=== PATIENT | female | born 1945 | race Caucasian/White ===

== ENCOUNTER 2017-09-14 09:58 | Inpatient (IN) | payer BC, OTHER ==
[2017-09-10 11:13] VITALS: BMI 30.9
[2017-09-14] MEDS ORDERED: HEPARIN NA (PORCINE) 5,000 UNITS/ML 1ML VIAL ONE (11:56)
[2017-09-14] MEDS ORDERED: THROMBIN (BOVINE) 5,000 UNIT VIAL TP ONE (11:56)
[2017-09-14] MEDS ORDERED: PROPOFOL 20 ML ONE ×9 (12:03→14:35)
[2017-09-14] MEDS ORDERED: fentaNYL CITRATE 250 MCG/5 ML VIAL ONE (12:03)
[2017-09-14] MEDS ORDERED: MIDAZOLAM HCL 2 MG/2 ML SINGLE DOSE VIAL ONE (12:03)
[2017-09-14] MEDS ORDERED: SUCCINYLCHOLINE CHLORIDE 200 MG/10 ML VIAL ONE (12:03)
[2017-09-14] MEDS ORDERED: DEXAMETHASONE SOD PHOSPHATE 4 MG/1 ML VIAL ONE (12:09)
[2017-09-14] MEDS ORDERED: ONDANSETRON 4 MG/2 ML VIAL ONE (12:09)
[2017-09-14] MEDS ORDERED: VANCOMYCIN 1,000 MG VIAL (RESTRICTED TO ID ONLY) ONE (12:09)
[2017-09-14] MEDS ORDERED: VANCOMYCIN 1,000 MG VIAL (RESTRICTED TO ID ONLY) IVPB ONE (12:30)
[2017-09-14] MEDS ORDERED: TRANEXAMIC ACID 1000 MG/10 ML VIAL ONE ×2 (13:00→13:07)
[2017-09-14] MEDS ORDERED: ceFAZolin SODIUM 1 GM VIAL IVPB ONE (13:00)
[2017-09-14] MEDS ORDERED: ceFAZolin SODIUM 1 GM VIAL ONE (13:00)
[2017-09-14] MEDS ORDERED: ePHEDrine SULFATE 50 MG/1 ML AMPULE ONE (13:40)
[2017-09-14] MEDS ORDERED: BENZOIN/ALOE VERA/STORAX/TOLU 58 ML BOTTLE ONE (15:15)
--- NOTE | 2017-09-14 15:39 | OP ---
Operative Note - Note: Operative Date: 09/14/17 Pre-Operative Diagnosis: C5-C6, C6-C7 spinal stenosis Operation: C5-C6 & C6-C7 ACDF Post-Operative Diagnosis: Same as Pre-op Surgeon: Robert Martinez Curing Oven Attendant: Leighton Martinez (Co-Surgeon) Anesthesiologist/BONE DRIER: Anton Lyons Anesthesia: General Specimens Removed: C5-C6, C6-C7 disk Estimated Blood Loss (mls): 50 Fluid Volume Replaced (mls): 1,200 Operative Report Dictated: Yes
--- NOTE | 2017-09-14 15:45 | PN ---
Progress Note (short form) - Note Progress Note: 71F s/p C5-C6, C6-C7 ACDF POD #0. -Admit to ICU post-op for airway observation. -Elevate head of bed at least 45 degrees. -Pain control: per anaesthesia team. -Mechanical DVT PPx. only: CHIQUITA's, SCD's. -Incentive spirometry. -PT/OT/OOB, Rehab. -WBAT B/L UE & LE. -Clear liquid diet; advance as tolerated. -d/c Reynolds catheter at midnight. -f/u AM labs. -Care per medical hospitalist team. -Discharge planning. -Will follow. Robert Martinez MD (Orthopaedic Surgery).
[2017-09-14] MEDS ORDERED: diazePAM CARPU-JECT 10 MG/2 ML DISP.SYRIN IVPUSH PRN (15:46)
[2017-09-14] MEDS ORDERED: ONDANSETRON 4 MG/2 ML VIAL IVPUSH PRN (15:46)
[2017-09-14] MEDS ORDERED: LACTATED RINGERS SOLUTION 1,000 ML IV SCH (16:00)
[2017-09-14] MEDS ORDERED: ACETAMINOPHEN INJECTION 100 ML IVPB ONE (16:51)
[2017-09-14] MEDS: ACETAMINOPHEN 1000 MG/100 ML VIAL (NON FORMULARY) IVPB SCH (16:55)
[2017-09-14] MEDS ORDERED: HYDROmorphone *PCA* 10MG/50ML DISP.SYRIN PCA ONE (17:14)
[2017-09-14] MEDS: HYDROmorphone *PCA* 10MG/50ML DISP.SYRIN PCA SCH (17:20)
[2017-09-14] MEDS: LACTATED RINGERS SOLUTION 1,000 ML IV SCH (17:50)
[2017-09-14] MEDS: ONDANSETRON 4 MG/2 ML VIAL IVPUSH PRN (22:53)
[2017-09-14] MEDS ORDERED: PROMETHAZINE HCL 25 MG/1 ML VIAL IVPUSH PRN (23:39)
[2017-09-14] MEDS ORDERED: DEXAMETHASONE SOD PHOSPHATE 4 MG/1 ML VIAL IVPUSH ONE (23:41)
[2017-09-15] MEDS: ACETAMINOPHEN 1000 MG/100 ML VIAL (NON FORMULARY) IVPB SCH ×2 (00:03→09:59)
[2017-09-15] MEDS ORDERED: HEMOQUE TEST 1 EACH EACH ONE (02:21)
[2017-09-15 06:48] LABS: HEMATOCRIT 32.6 % (32.4-45.2); MCH 26.7 pg (25.7-33.7); MCHC 33.8 g/dl (32.0-36.0); MEAN CELL VOLUME 79.2 fl (80-96); MEAN PLT VOLUME 9.4 fl (7.5-11.1); PLATELET COUNT 259 K/MM3 (134-434); RBC 4.11 M/mm3 (3.60-5.2); RDW 14.2 % (11.6-15.6); WHITE BLOOD COUNT 10.8 K/mm3 (4.0-10.0)
[2017-09-15 07:33] LABS: ANION GAP 11 (8-16); BLOOD UREA NITROGEN 9 mg/dL (7-18); CALCIUM 9.4 mg/dL (8.5-10.1); CHLORIDE 100 mmol/L (98-107); CO2 28 mmol/L (21-32); CREATININE 0.5 mg/dL (0.55-1.02); GLUCOSE,RANDOM 112 mg/dL (74-106); POTASSIUM 4.1 mmol/L (3.5-5.1); SODIUM 139 mmol/L (136-145)
[2017-09-15] MEDS: LACTATED RINGERS SOLUTION 1,000 ML IV SCH ×3 (09:45→18:18)
[2017-09-15] MEDS: METOPROLOL TARTRATE 25 MG TABLET (FP) PO SCH (10:00)
[2017-09-15] MEDS: HYDROCHLOROTHIAZIDE 25 MG TABLET (FP) PO SCH (10:00)
[2017-09-15] MEDS ORDERED: FLU VACCINE QUAD 60 MCG/0.5 ML (MDV 17-18) IM ONE (10:00)
[2017-09-15] MEDS: ONDANSETRON 4 MG/2 ML VIAL IVPUSH PRN (10:13)
--- NOTE | 2017-09-15 11:48 | OP ---
DATE OF OPERATION: 09/14/2017 SURGEON: Robert Martinez MD HR ADMINISTRATOR: Leighton Martinez MD PREOPERATIVE DIAGNOSIS: C5-6, C6-C7 disk prolapse with osteophyte disk and segmental instability and associated stenosis. POSTOPERATIVE DIAGNOSIS: C5-6, C6-C7 disk prolapse with osteophyte disk and segmental instability and associated stenosis. OPERATION PERFORMED: 1. Anterior cervical diskectomy and fusion, C5-6. 2. Anterior cervical diskectomy and fusion, C6-7. 3. Partial corpectomy C5, C6, and C7. 4. Insertion of cage, C5-6 and C6-C7. 5. Anterior bone grafting C5-6, C6-7. 6. Anterior plating C5, C6, and C7. ANESTHESIA: General. ANTIBIOTICS GIVEN: Kefzol 2 g, vancomycin 1 g preoperative, Decadron 10 mg given. PROCEDURE: Patient correctly identified, brought into the operating room. The head and neck were extended in the appropriate, relaxed, extended position. Neuromonitoring revealed no changes from baseline to the extended position. Monitoring of vocal cords performed as well. Timeout was called. The skin was cleansed with Betadine scrub solution, wiped off with alcohol, DuraPrep applied. A window drape applied. In the neck, an incision was made over the lines of Frantz. This was at the level of the cricothyroid interval. The platysma was split longitudinally. The investing layer of fascia was opened longitudinally. This gave easy access to the area between the viscera and vessels, exposing appropriately the anterior vertebral bodies of C5, C6, and C7. Using a Bovie, all the soft tissues were melted off the anterior surfaces of the bone. The longus colli was lifted off the bone on the medial and lateral side. Retractors placed into the muscle belly. [place] pins were placed into the body of C5 and into the body of C7. Verification of levels with a lateral fluoroscopic x-ray taken 3 times to ensure the correct positioning and correct disks to remove. Using a Bovie, the annulus was resected. A curette resected a lot of the disk material. A 40-mm rough michaelle-tip niles was utilized to create the rectangle in the interbody space at C4-5 and C5-6. Appropriate Kerrison number 1 and 2 were utilized to cut out the longitudinal ligament and to perform appropriate undercutting and 4 partial corpectomies facilitated with a niles of C5, C6, and C7; that is, at each level, 4 partial corpectomies were performed, one at C5, two at C6, and one at C7 to create the appropriate rectangular spaces noted right down to the exposed theca of the spinal cord. The full decompression performed. PEEK cages number8 with 5 degrees of lordosis inserted. These were filled with allograft bone morphogenic material. The cages were placed with the spine in slight extension. The ligamentotaxis collapsed the soft tissues onto the actual cages, solidifying the fixation completely. A size 32 Precision anterior plate inserted. Solid fixation achieved. Two screws in C5, two in C6, and two in C7. The subcutaneous tissue was closed as follows: Fascia and platysma with subcuticular 3-0 Vicryl, skin 3-0 Monocryl with Steri-Strips. No complications. Wound was completely dry at the time of extrication out of the OR. MD SAM Golden/[id number] MTDInna
--- NOTE | 2017-09-15 12:47 | PN ---
Teaching Attending Note Name of Resident: Marito Canas ATTENDING PHYSICIAN STATEMENT I saw and evaluated the patient. I reviewed the resident's note and discussed the case with the resident. I agree with the resident's findings and plan as documented. SUBJECTIVE: Pt seen and examined in the ICU. Briefly, 71yo female with h/o HTN, DM, hypercholesterolemia, cervical spinal stenosis who was admitted for an elective C5-C6 and C6-C7 anterior cervical discectomy and fusion. No reported complications. Pt states pain is controlled. No nausea or vomiting. No shortness of breath or chest pain. No fevers or chills. OBJECTIVE: Last Vital Signs Temp Pulse Resp BP Pulse Ox 98.4 F 87 14 130/73 99 09/15/17 10:00 09/15/17 08:00 09/15/17 08:00 09/15/17 08:00 09/15/17 08:00 Intake & Output 09/12/17 09/13/17 09/14/17 09/15/17 23:59 23:59 23:59 23:59 Intake Total 2050 1550 Output Total 2350 2900 Balance -300 -1350 Gen: NAD at rest Heart: RRR Lung: decreased breath sounds at the bases Abd: soft, nontender Ext: no edema CBC, BMP 09/15/17 05:40 09/15/17 05:40 Active Medications Diazepam (Valium Injection -) 5 mg IVPUSH Q8H PRN PRN Reason: BACK PAIN Hydrochlorothiazide (Hctz -) 25 mg PO DAILY [facility] Last Admin: 09/15/17 10:00 Dose: 25 mg Hydromorphone HCl (Dilaudid Tier Lift Truck Operator -) 0 mg RUFFLING MACHINE OPERATOR RUFFLING MACHINE OPERATOR [facility] PRN Reason: Protocol Stop: 09/17/17 15:49 Last Admin: 09/14/17 17:20 Dose: 10 mg Lactated Ringer's (Lactated Ringers Solution) 1,000 mls @ 125 mls/hr IV ASDIR [facility] Last Admin: 09/15/17 09:45 Dose: 125 mls/hr Metoprolol Tartrate (Lopressor -) 25 mg PO DAILY [facility] Last Admin: 09/15/17 10:00 Dose: 25 mg ASSESSMENT AND PLAN: Cervical Spinal Stenosis s/p C5-C6, C6-C7 ACDF HTN DM Hypercholesterolemia - pain control - incentive spirometry - PO when flatus - d/c de la fuente when OOB - mechanical DVT prophylaxis - continue home meds - dispo per surgery
--- NOTE | 2017-09-15 14:04 | CONSULT ---
Consultation: REQUESTING PROVIDER: CONSULT REQUEST: We have been asked to medically evaluate this patient for ICU care. HISTORY OF PRESENT ILLNESS: Patient is a 71F with history of HTN here post-op after anterior cervical discectomy and fusion. Placed in the ICU for airway observation. Patient stable overnight. Patient had episodes of vomiting after starting HOG DROPPER, discontinued HOG DROPPER, given zofran and phenegran. Patient reports some epigastric pain that radiates up to her chest after vomiting. Denies chest pain, shortness of breath, difficultly breathing, sensation of throat swelling. Procedure tolerated without complications. Reynolds discontinued at midnight. REVIEW OF SYSTEMS: CONSTITUTIONAL: Absent: fever, chills, diaphoresis, generalized weakness HEENT: Absent: rhinorrhea, nasal congestion, throat pain, throat swelling CARDIOVASCULAR: Absent: chest pain, syncope, palpitations RESPIRATORY: Absent: cough, shortness of breath GASTROINTESTINAL: Absent: abdominal distension, diarrhea Positive: Epigastric abdominal pain, nausea, vomiting GENITOURINARY: Absent: dysuria, frequency MUSCULOSKELETAL: Absent: myalgia, arthralgia, joint swelling, back pain Positive: Neck pain SKIN: Absent: rash, itching, pallor HEMATOLOGIC/IMMUNOLOGIC: Absent: easy bleeding, easy bruising, ENDOCRINE: Absent: unexplained weight gain, unexplained weight loss, heat intolerance, cold intolerance NEUROLOGIC: Absent: headache, focal weakness or paresthesias PSYCHIATRIC: Absent: anxiety, depression, suicidal or homicidal ideation, hallucinations. PHYSICAL EXAMINATION Vital Signs - 24 hr 09/14/17 09/14/17 09/14/17 15:38 15:45 16:00 Temperature 97.8 F Pulse Rate 93 H 89 85 Respiratory 15 14 10 L Rate Blood Pressure 135/72 130/66 127/66 O2 Sat by Pulse 97 99 98 Oximetry (%) 09/14/17 09/14/17 09/14/17 16:15 16:30 16:45 Temperature Pulse Rate 82 83 82 Respiratory 18 14 11 L Rate Blood Pressure 123/62 128/64 120/65 O2 Sat by Pulse 98 99 100 Oximetry (%) 09/14/17 09/14/17 09/14/17 17:00 17:15 17:20 Temperature Pulse Rate 82 83 83 Respiratory 10 L 13 16 Rate Blood Pressure 121/66 124/64 124/64 O2 Sat by Pulse 100 100 Oximetry (%) 09/14/17 09/14/17 09/14/17 17:30 17:45 18:00 Temperature Pulse Rate 80 82 83 Respiratory 13 10 L 10 L Rate Blood Pressure 119/62 119/63 119/63 O2 Sat by Pulse 100 100 100 Oximetry (%) 09/14/17 09/14/17 09/14/17 18:15 18:30 18:45 Temperature Pulse Rate 83 83 84 Respiratory 10 L 10 L 11 L Rate Blood Pressure 117/64 121/64 121/64 O2 Sat by Pulse 100 100 100 Oximetry (%) 09/14/17 09/14/17 09/14/17 19:00 19:15 19:30 Temperature 98.2 F Pulse Rate 86 87 86 Respiratory 10 L 11 L 15 Rate Blood Pressure 123/66 122/64 119/67 O2 Sat by Pulse 100 100 100 Oximetry (%) 09/14/17 09/14/17 09/14/17 20:00 20:30 21:00 Temperature Pulse Rate 90 91 H 89 Respiratory 10 L 10 L 15 Rate Blood Pressure 122/64 121/69 129/64 O2 Sat by Pulse 100 100 100 Oximetry (%) 09/14/17 09/14/17 09/14/17 21:30 22:00 22:30 Temperature 98.1 F Pulse Rate 89 90 89 Respiratory 15 13 14 Rate Blood Pressure 129/64 126/70 130/68 O2 Sat by Pulse 100 100 100 Oximetry (%) 09/14/17 09/15/17 09/15/17 22:47 00:00 02:06 Temperature 98.9 F 98.5 F Pulse Rate 95 H 85 86 Respiratory 18 14 16 Rate Blood Pressure 141/63 138/80 134/72 O2 Sat by Pulse Oximetry (%) 09/15/17 09/15/17 09/15/17 04:00 06:00 08:00 Temperature 99 F 98.7 F Pulse Rate 85 86 87 Respiratory 18 16 14 Rate Blood Pressure 131/74 132/71 130/73 O2 Sat by Pulse 99 Oximetry (%) 09/15/17 09/15/17 10:00 12:00 Temperature 98.4 F Pulse Rate 73 Respiratory 14 Rate Blood Pressure 124/69 O2 Sat by Pulse Oximetry (%) GENERAL: Awake, alert, and fully oriented, in no acute distress. HEAD: Normal with no signs of trauma. EYES: Pupils equal, round and reactive to light, extraocular movements intact, sclera anicteric, conjunctiva clear. No lid lag. EARS, NOSE, THROAT: Ears normal, nares patent, oropharynx clear without exudates. Moist mucous membranes. NECK: Supple, bandaged surgical wound LUNGS: Breath sounds equal, clear to auscultation bilaterally. No wheezes, and no crackles. No accessory muscle use. HEART: Regular rate and rhythm, normal S1 and S2 without murmur, rub or gallop. ABDOMEN: Soft, nontender, not distended, normoactive bowel sounds, no guarding, no rebound, no masses. No hepatomegaly or splenomegaly. UPPER EXTREMITIES: 2+ pulses, warm, well-perfused. No cyanosis. No clubbing. Cap refill <2 seconds. No peripheral edema. LOWER EXTREMITIES: 2+ pulses, warm, well-perfused. No calf tenderness. No peripheral edema. NEUROLOGICAL: Cranial nerves II-XII intact. Normal speech. PSYCHIATRIC: Cooperative. Good eye contact. Appropriate mood and affect. SKIN: Warm, dry, normal turgor, no rashes or lesions noted. Laboratory Results - last 24 hr 09/14/17 09/15/17 09/15/17 19:43 02:20 05:40 WBC 10.8 H RBC 4.11 Hgb 11.0 Hct 32.6 MCV 79.2 L MCH 26.7 MCHC 33.8 RDW 14.2 Plt Count 259 MPV 9.4 Sodium Potassium Chloride Carbon Dioxide Anion Gap BUN Creatinine POC Glucometer 127 148.57650 Random Glucose Calcium 09/15/17 09/15/17 05:40 06:11 WBC RBC Hgb Hct MCV MCH MCHC RDW Plt Count MPV Sodium 139 Potassium 4.1 Chloride 100 Carbon Dioxide 28 Anion Gap 11 BUN 9 Creatinine 0.5 L POC Glucometer 132.66751 Random Glucose 112 H Calcium 9.4 Active Medications Generic Name Dose Route Start Last Admin Trade Name Freq PRN Reason Stop Dose Admin Diazepam 5 mg 09/14/17 15:46 Valium Injection - IVPUSH Q8H PRN BACK PAIN Hydrochlorothiazide 25 mg 09/15/17 10:00 09/15/17 10:00 Hctz - PO 25 mg DAILY [facility] Administration Hydromorphone HCl 0 mg 09/14/17 16:00 09/14/17 17:20 Dilaudid Segment Producer - HOG DROPPER 09/17/17 15:49 10 mg HOG DROPPER [facility] Administration Protocol Lactated Ringer's 1,000 mls @ 125 mls/hr 09/14/17 16:00 09/15/17 09:45 Lactated Ringers Solution IV 125 mls/hr ASDIR [facility] Administration Metoprolol Tartrate 25 mg 09/15/17 10:00 09/15/17 10:00 Lopressor - PO 25 mg DAILY [facility] Administration ASSESSMENT/PLAN: Patient is a 71F with history of HTN here today after anterior cervical discectomy and fusion. Vital signs stable and normal overnight. No airway issues. Tolerating PO. Pain under control. Resp #Post-op ACDF - Airway monitored overnight, no issues - Good for transfer to general bed - Incentive spirometry CV #HTN - Continue home medications #Post-op ACDF - IV fluids Neuro: #Post op ACDF - Pain under control, no HOG DROPPER needed FEN/GI: - Clear diet, advance as tolerated and per surgery - Monitor electrolytes, replete as necessary Dispo: - Patient stable for transfer to med/surg. Visit type - Emergency Visit Emergency Visit: Yes ED Registration Date: 09/14/17 Care time: The patient presented to the Emergency Department on the above date and was hospitalized for further evaluation of their emergent condition. - New Patient This patient is new to me today: Yes Date on this admission: 09/15/17 - Critical Care Critical Care patient: Yes Total Critical Care Time (in minutes): 35 Critical Care Statement: The care of this patient involved high complexity decision making to prevent further life threatening deterioration of the patient 's condition and/or to evaluate & treat vital organ system(s) failure or risk of failure.
--- NOTE | 2017-09-15 14:42 | PN ---
Physical Exam: SUBJECTIVE: Patient seen and examined in ICU Feels well, some discomfort when swallowing liquids, but overall feels well. OBJECTIVE: Patient is s/p anterior cervical discectomy and fusion Dressing c/d/i Vital Signs Period Temp Pulse Resp BP Sys/Mayorga Pulse Ox Last 24 Hr 97.6 F-99 F 73-96 10-18 117-141/62-80 97-100 GENERAL: The patient is awake, alert, and fully oriented, in no acute distress. HEAD: Normal with no signs of trauma. EYES: PERRL, extraocular movements intact, sclera anicteric, conjunctiva clear. No ptosis. NECK:dressing c/d/i, tolerating clears, advance diet per surgery LUNGS: Breath sounds equal, clear to auscultation bilaterally HEART: Regular rate and rhythm ABDOMEN: Soft, nontender, nondistended, normoactive bowel sounds, no guarding, no rebound, no hepatosplenomegaly, no masses. EXTREMITIES: no edema. NEUROLOGICAL: Normal speech, gait not observed. PSYCH: Normal mood, normal affect. SKIN: Warm, dry, normal turgor, no rashes or lesions noted Laboratory Results - last 24 hr 09/14/17 09/15/17 09/15/17 19:43 02:20 05:40 WBC 10.8 H RBC 4.11 Hgb 11.0 Hct 32.6 MCV 79.2 L MCH 26.7 MCHC 33.8 RDW 14.2 Plt Count 259 MPV 9.4 Sodium Potassium Chloride Carbon Dioxide Anion Gap BUN Creatinine POC Glucometer 127 148.62713 Random Glucose Calcium 09/15/17 09/15/17 05:40 06:11 WBC RBC Hgb Hct MCV MCH MCHC RDW Plt Count MPV Sodium 139 Potassium 4.1 Chloride 100 Carbon Dioxide 28 Anion Gap 11 BUN 9 Creatinine 0.5 L POC Glucometer 132.26838 Random Glucose 112 H Calcium 9.4 Active Medications Generic Name Dose Route Start Last Admin Trade Name Freq PRN Reason Stop Dose Admin Diazepam 5 mg 09/14/17 15:46 Valium Injection - IVPUSH Q8H PRN BACK PAIN Hydrochlorothiazide 25 mg 09/15/17 10:00 09/15/17 10:00 Hctz - PO 25 mg DAILY [facility] Administration Hydromorphone HCl 0 mg 09/14/17 16:00 09/14/17 17:20 Dilaudid Medical Detailist - MILLING MACHINE OPERATOR 09/17/17 15:49 10 mg MILLING MACHINE OPERATOR [facility]RAD Administration Protocol Lactated Ringer's 1,000 mls @ 125 mls/hr 09/14/17 16:00 09/15/17 09:45 Lactated Ringers Solution IV 125 mls/hr ASDIR [facility] Administration Metoprolol Tartrate 25 mg 09/15/17 10:00 09/15/17 10:00 Lopressor - PO 25 mg DAILY [facility] Administration ASSESSMENT/PLAN: Patient is a 71 year old female who is s/p anterior cervical discectomy and fusion with Dr. Rai. Her other past medical history of hypertension. On exam patient denies chest pain, shortness of breath, states she is comfortable. No difficulty with swallowing clears. No difficulty with urination. She is in the ICU post surgery for observation of airway. Surgery: Anterior cervical discectomy and fusion ICU monitoring Dilaudid PCp for pain control Valium PRN on LR Incentive spirometer Physical therapy Urinating with bed cruz Bowel regimen Card: Hypertension, chronic controlled On Lopressor and HCTZ F.E.N. Fluids: LR @ 125 Electrolytes: monitor with daily labs Nutrition: clears Prophy: DVT: SCDs Disposition: ICU monitoring for airway. full code. Visit type - Emergency Visit Emergency Visit: Yes ED Registration Date: 09/14/17 Care time: The patient presented to the Emergency Department on the above date and was hospitalized for further evaluation of their emergent condition. - New Patient This patient is new to me today: Yes Date on this admission: 09/15/17 - Critical Care Critical Care patient: Yes Total Critical Care Time (in minutes): 40 Critical Care Statement: The care of this patient involved high complexity decision making to prevent further life threatening deterioration of the patient 's condition and/or to evaluate & treat vital organ system(s) failure or risk of failure.
--- NOTE | 2017-09-15 15:31 | PN ---
Progress Note (short form) - Note Progress Note: Post op day#1.S/P C5-C7 ACDF under Ga uneventful.P 72,BP 127/67 and Spo2 100% on O2 2L NC.Patient stable and has pain score of 3-4/10 on Dilaudid ECHOCARDIOGRAPH TECH but she had sever N/v with Dilaudid ECHOCARDIOGRAPH TECH.So ECHOCARDIOGRAPH TECH is Dc and patient put on Neurontin and Toradol.No any anesthesia related problem.Patient Dc from the anesthesia care.
[2017-09-15] MEDS: HYDROmorphone *PCA* 10MG/50ML DISP.SYRIN PCA SCH (16:00)
[2017-09-15] MEDS ORDERED: DOCUSATE NA 100 MG/10 ML UNIT-DOSE CUPS PO PRN (18:20)
[2017-09-15] MEDS: KETOROLAC TROMETHAMINE 30 MG/1 ML VIAL IVPUSH PRN (18:21)
[2017-09-15] MEDS: GABAPENTIN 300 MG CAPSULE (FP) PO SCH (21:36)
[2017-09-16] MEDS: KETOROLAC TROMETHAMINE 30 MG/1 ML VIAL IVPUSH PRN (06:35)
[2017-09-16 06:38] LABS: BASO % 0.3 % (0-2.0); EOS % 0.6 % (0-4.5); HEMATOCRIT 28.3 % (32.4-45.2); HEMOGLOBIN 9.5 GM/dL (10.7-15.3); LYMPH % 29.3 % (8-40); MCH 26.9 pg (25.7-33.7); MCHC 33.7 g/dl (32.0-36.0); MEAN CELL VOLUME 79.8 fl (80-96); MEAN PLT VOLUME 9.1 fl (7.5-11.1); MONO % 10.1 % (3.8-10.2); NEUT % 59.7 % (42.8-82.8); PLATELET COUNT 225 K/MM3 (134-434); RBC 3.55 M/mm3 (3.60-5.2); RDW 13.8 % (11.6-15.6); WHITE BLOOD COUNT 7.7 K/mm3 (4.0-10.0)
[2017-09-16 06:57] LABS: ALBUMIN 2.8 g/dl (3.4-5.0); ANION GAP 7 (8-16); BILIRUBIN,TOTAL 0.5 mg/dL (0.2-1.0); BLOOD UREA NITROGEN 9 mg/dL (7-18); CALCIUM 8.4 mg/dL (8.5-10.1); CHLORIDE 101 mmol/L (98-107); CO2 32 mmol/L (21-32); CREATININE 0.6 mg/dL (0.55-1.02); GLUCOSE,RANDOM 82 mg/dL (74-106); PHOSPHOROUS 2.3 mg/dL (2.5-4.9); POTASSIUM 3.8 mmol/L (3.5-5.1); SGOT/AST 17 U/L (15-37); SGPT/ALT 14 U/L (12-78); SODIUM 140 mmol/L (136-145); TOT PROT 6.5 g/dl (6.4-8.2)
[2017-09-16 06:58] LABS: ALK PHOS 48 U/L (45-117)
[2017-09-16 10:55] VITALS: TEMP 97.7
--- NOTE | 2017-09-16 11:38 | DS ---
Physical Exam: SUBJECTIVE: Patient seen and examined. She has mild pain when she swallows. She is ambulating, ready to go home. Tolerating clears OBJECTIVE: Vital Signs Period Temp Pulse Resp BP Sys/Mayorga Pulse Ox Last 24 Hr 97.6 F-99.1 F 64-79 12-22 103-135/55-94 99 PE Neuro: alert, awake, cn 2-12intact HEENT: anterior neck dressing CDI Pulm: CTAB CV: s1 s2 rrr no mrg Abd: s nt nd + bs Ext: warm, + 1 edema Laboratory Results - last 24 hr 09/14/17 09/16/17 09/16/17 19:43 05:45 05:45 WBC 7.7 RBC 3.55 L Hgb 9.5 L D Hct 28.3 L MCV 79.8 L MCH 26.9 MCHC 33.7 RDW 13.8 Plt Count 225 MPV 9.1 Neutrophils % 59.7 Lymphocytes % 29.3 Monocytes % 10.1 Eosinophils % 0.6 Basophils % 0.3 Sodium 140 Potassium 3.8 Chloride 101 Carbon Dioxide 32 Anion Gap 7 L BUN 9 Creatinine 0.6 Creat Clearance w eGFR > 60 POC Glucometer 127 Random Glucose 82 Calcium 8.4 L Phosphorus 2.3 L Magnesium 2.0 Total Bilirubin 0.5 AST 17 ALT 14 Alkaline Phosphatase 48 Total Protein 6.5 Albumin 2.8 L HOSPITAL COURSE: Date of Admission:09/14/17 Date of Discharge: 09/16/17 Minutes to complete discharge: 37 Discharge Summary Reason For Visit: CERVICAL DISC DISORDER W RADICULOPATHY, UNSP CERVI Hospital Course: Hospital Course: 71 year old female with history of HTN admitted after anterior cervical discectomy and fusion 09/14. She has no resp distress on discharge. Patient tolerated procedure, de la fuente discontinued, pain tolerable on PO tylenol and neurontin sent to pharmacy HTN well controlled on home meds DM - resume home po meds Pt will follow up with ortho in 2 weeks Discharged home with [facility] Condition: Stable - Instructions Diet, Activity, Other Instructions: Please return to the ED for any new, persistent, or worsening symptoms. Follow up with your PCP in 1 week Resume home medications as directed Referrals: Leighton Martinez MD [Staff Physician] - 1 Week Disposition: [facility]/HOME HEALTH CARE - Home Medications Comprehensive Discharge Medication List: Ambulatory Orders Atorvastatin Ca [Lipitor] 80 mg PO HS 09/10/17 Hydrochlorothiazide 25 mg PO DAILY 09/10/17 Metformin HCl 500 mg PO BID 09/10/17 Metoprolol Tartrate 25 mg PO DAILY 09/10/17 Gabapentin [Neurontin] 300 mg PO BID #20 capsule 09/16/17 This patient is new to me today: Yes Date on this admission: 09/16/17 Emergency Visit: Yes ED Registration Date: 09/14/17 Care time: The patient presented to the Emergency Department on the above date and was hospitalized for further evaluation of their emergent condition. Critical Care patient: No - Discharge Referral Referred to [facility] Med P.C.: No
[2017-09-16] MEDS ORDERED: POLYETHYLENE GLYCOL 3350 119 GM BTL PO ONE (11:45)
[2017-09-16] MEDS ORDERED: MAGNESIUM HYDROX 2400MG/30ML ORAL SUSPENSION 30 ML CUP PO ONE (11:45)
[2017-09-16] MEDS ORDERED: NAPH,MB-DB/K PH,MBDB POWDER PACKET PO ONE (12:00)
[2017-09-16] MEDS: GABAPENTIN 300 MG CAPSULE (FP) PO SCH (12:19)
[2017-09-16] MEDS: HYDROCHLOROTHIAZIDE 25 MG TABLET (FP) PO SCH (12:20)
[2017-09-16] MEDS: METOPROLOL TARTRATE 25 MG TABLET (FP) PO SCH (12:20)
[2017-09-16 12:39] VITALS: BP 114/66; PULSE 78
--- NOTE | 2017-09-16 12:43 | PN ---
Teaching Attending Note Name of Resident: Ann-Marie Dominique ATTENDING PHYSICIAN STATEMENT I saw and evaluated the patient. I reviewed the resident's note and discussed the case with the resident. I agree with the resident's findings and plan as documented. SUBJECTIVE: Pt seen and examined in the ICU. Pain controlled. No nausea or vomiting. No fevers or chills. Tolerating PO. OBJECTIVE: Last Vital Signs Temp Pulse Resp BP Pulse Ox 97.7 F 78 18 114/66 99 09/16/17 10:00 09/16/17 12:00 09/16/17 12:00 09/16/17 12:00 09/16/17 09:00 Intake & Output 09/13/17 09/14/17 09/15/17 09/16/17 23:59 23:59 23:59 23:59 Intake Total 2050 4050 1900 Output Total 2350 4600 Balance -300 -550 1900 Weight 84 kg Gen: NAD at rest Heart: RRR Lung: decreased breath sounds at the bases Abd: soft, nontender Ext: no edema CBC, BMP 09/16/17 05:45 09/16/17 05:45 Active Medications Diazepam (Valium Injection -) 5 mg IVPUSH Q8H PRN PRN Reason: BACK PAIN Docusate Sodium (Colace Liquid -) 100 mg PO Q24H PRN PRN Reason: CONSTIPATION Gabapentin (Neurontin -) 300 mg PO BID [facility] Last Admin: 09/16/17 12:19 Dose: 300 mg Hydrochlorothiazide (Hctz -) 25 mg PO DAILY [facility] Last Admin: 09/16/17 12:20 Dose: 25 mg Hydromorphone HCl (Dilaudid Telephone Sterilizer -) 0 mg FRENCH BINDING FOLDER FRENCH BINDING FOLDER [facility] PRN Reason: Protocol Stop: 09/17/17 15:49 Last Admin: 09/15/17 16:00 Dose: Not Given Ketorolac Tromethamine (Toradol Injection -) 30 mg IVPUSH Q6H PRN PRN Reason: PAIN LEVEL 6-10 Stop: 09/20/17 15:23 Last Admin: 09/16/17 06:35 Dose: 30 mg Metoprolol Tartrate (Lopressor -) 25 mg PO DAILY [facility] Last Admin: 09/16/17 12:20 Dose: 25 mg ASSESSMENT AND PLAN: Cervical Spinal Stenosis s/p C5-C6, C6-C7 ACDF HTN DM Hypercholesterolemia - pain control - incentive spirometry - OOB - mechanical DVT prophylaxis - continue home meds - d/c planning
--- NOTE | 2017-09-16 15:56 | PN ---
Physical Exam: SUBJECTIVE: Patient seen and examined by me at bedside. No overnight events noted. Patient passed flatus but no bowel movement yet but on colace. Patient has adequate pain control. Otherwise, denies fever, chills, nausea, vomiting, chest pain, palpitations, shortness of breath, dysuria, hematuria, headaches, acute vision changes, diarrhea, constipation. OBJECTIVE: Vital Signs Period Temp Pulse Resp BP Sys/Mayorga Pulse Ox Last 24 Hr 97.7 F-99.1 F 64-79 12-22 103-135/55-94 99-99 GENERAL: The patient is awake, alert, and fully oriented, in no acute distress. EYES: Sclera anicteric, conjunctiva clear. ENT: moist mucous membranes. LUNGS: Breath sounds equal, clear to auscultation bilaterally, no wheezes, no crackles, no accessory muscle use. HEART: Regular rate and rhythm, S1, S2 without murmur, rub or gallop. ABDOMEN: Soft, nontender, nondistended, normoactive bowel sounds. EXTREMITIES: no edema. NEUROLOGICAL: Normal speech. Sensory intact throughout. Laboratory Results - last 24 hr 09/16/17 09/16/17 09/16/17 05:45 05:45 10:23 WBC 7.7 RBC 3.55 L Hgb 9.5 L D Hct 28.3 L MCV 79.8 L MCH 26.9 MCHC 33.7 RDW 13.8 Plt Count 225 MPV 9.1 Neutrophils % 59.7 Lymphocytes % 29.3 Monocytes % 10.1 Eosinophils % 0.6 Basophils % 0.3 Sodium 140 Potassium 3.8 Chloride 101 Carbon Dioxide 32 Anion Gap 7 L BUN 9 Creatinine 0.6 Creat Clearance w eGFR > 60 POC Glucometer 120.52345 Random Glucose 82 Calcium 8.4 L Phosphorus 2.3 L Magnesium 2.0 Total Bilirubin 0.5 AST 17 ALT 14 Alkaline Phosphatase 48 Total Protein 6.5 Albumin 2.8 L ASSESSMENT/PLAN: Patient is a 71 year old female who is s/p anterior cervical discectomy and fusion. Surgery #Anterior cervical discectomy and fusion -Tolerating PO. Fluids Discontinued -Continue incentive spirometry -OOB and PT -Continue SCD's -Pain controlled -Continue Neurontin 300mg BID -Discharge planning today -To follow up with Neurosurgeon in two weeks. Cardiovascular #HTN-Controlled -Continue Lopressor 25mg daily -Continue HCTZ 25mg daily -Continue to monitor BP #HLD -Continue Lipitor 80mg daily Endocrine #NIDDMII -Continue ISS and BGM F/E/N -Stop fluids and patient started on diet -Hypophosphatemia. Replete and repeat -Clear liquid Prophylaxis -Medium risk. SCD's for DVT -No GI prophylaxis indicated Disposition -Full code -May be transferred to floors and discharged home Ann-Marie Dominique [id number] Visit type - Emergency Visit Emergency Visit: Yes ED Registration Date: 09/14/17 Care time: The patient presented to the Emergency Department on the above date and was hospitalized for further evaluation of their emergent condition. - New Patient This patient is new to me today: Yes Date on this admission: 09/16/17 - Critical Care Critical Care patient: Yes Total Critical Care Time (in minutes): 45 Critical Care Statement: The care of this patient involved high complexity decision making to prevent further life threatening deterioration of the patient 's condition and/or to evaluate & treat vital organ system(s) failure or risk of failure.
--- NOTE | 2017-09-17 14:44 | PATH ---
Surgical Pathology Report Patient Name: SVETLANA DYSON [facility]. Rec. #: [id number] /Age/Gender: 1945 (Age: 71) / F Account: [id number] Location: [facility] [employer] [employer] [facility] Taken: 09/14/2017 Received: 09/15/2017 Reported: 09/17/2017 Physicians: Robert Martinez M.D. Specimen(s) Received DISC C5-7 Clinical History Cervical disc disorder with radiculopathy Final Diagnosis INTERVERTEBRAL DISC, C5-C7, PARTIAL EXCISION: PORTIONS OF INTERVERTEBRAL DISC, AND SMALL FRAGMENTS OF BONE. Electronically Signed Gume Michael M.D. Gross Description Received in formalin labeled "disc C5-7," is a 3.0 x 2.5 x 0.3 cm aggregate of rivera fragments of fibrocartilaginous tissue. A community relations representative portion is submitted in one cassette. /09/15/2017 saudi/09/15/2017
== END 2017-09-16 13:04 | disposition home health service (06) | DRG 473 ==
LOC: JSAMEDAYSX 10:41 → JICU 22:32
PROVIDERS: ADMIT Orthopaedic Surgery Orthopaedic Surgery of the Spine; ATTEND Nurse Practitioner Acute Care
PROC: 0RB30ZZ Excision of Cervical Vertebral Disc, Open Approach (ICD-10-PCS; 2017-09-14)
PROC: 0RG2070 Fusion of 2 or more Cervical Vertebral Joints with Autologous Tissue Substitute, Anterior Approach, Anterior Column, Open Approach (ICD-10-PCS; 2017-09-14)
PROC: 0RG20A0 Fusion of 2 or more Cervical Vertebral Joints with Interbody Fusion Device, Anterior Approach, Anterior Column, Open Approach (ICD-10-PCS; principal; 2017-09-14 12:30)
DX: M48.02 Spinal stenosis, cervical region (principal); M50.222 Other cervical disc displacement at C5-C6 level; M50.223 Other cervical disc displacement at C6-C7 level; I10 Essential (primary) hypertension; E78.5 Hyperlipidemia, unspecified; E11.9 Type 2 diabetes mellitus without complications
CPT/HCPCS: 36415; 76000-TC-FY; 80048; 80053; 82962; 83735; 84100; 85025; 85027; 86850; 86900; 86901; 88304-TC; 97116-GP; 97161-GP; J0131; J1644